=== PATIENT | male | born 1970 | race Caucasian/White ===

== ENCOUNTER 2020-05-22 23:48 | Observation (INO) | payer OTHER ==
[~2020-05-22] VITALS: Ht 180.3 cm; Wt 103.6 kg
[2020-05-23] VITALS (10 sets, daily range): BP systolic 104–147; BP diastolic 68–100; PULSE 60–81; TEMP 97.7–98.3
[2020-05-23 00:04] LABS: BASO # 0.1 (0.0-0.2); BASO % 0.6 % (0.0-2.0); EOS # 0.1 (0.0-0.7); EOS % 1.5 % (0-4.0); GRAN # 5.9 (1.4-6.5); GRAN % 71.7 % (42.2-75.2); HEMATOCRIT 46.9 % (42.0-52.0); HEMOGLOBIN 16.2 g/dl (13.5-18.0); LYMPH # 1.5 (1.2-3.4); LYMPH % 18.2 % (20.0-51.0); MEAN CELL VOLUME 87 fl (80.0-100.0); MEAN CORPUSCULAR HEMOGLOBIN 30 pg (27.0-31.0); MEAN CORPUSCULAR HGB CONC 35 g/dl (33.0-37.0); MEAN PLATELET VOLUME 9.7 fl (7.4-10.4); MONO # 0.6 (0.1-0.6); MONO % 7.6 % (1.7-9.3); PLATELET COUNT 283 K/mm3 (130-400); REDCELL DISTRIBUTION WIDTH-CV 13.1 % (11.5-14.5)
[2020-05-23 00:15] LABS: ALBUMIN 4.7 gm/dL (3.5-5.0); BILIRUBIN,TOTAL 0.6 mg/dL (0.0-1.0); CALCIUM 9.5 mg/dL (8.4-10.2); CREATININE, serum 0.95 (0.66-1.25); TOTAL PROTEIN 8.6 gm/dL (6.4-8.2)
--- NOTE | 2020-05-23 02:20 | NUR ---
ARRIVES TO ROOM 327 VIA W/C. IS ALERT AND ORIENTED X4. SL TO LEFT AC WITHOUT REDNESS OR SWELLING.
--- NOTE | 2020-05-23 02:55 | NUR ---
PT REPORTS PAIN BEHIND HIS EYES AND JAWS, MEDICATED WITH MORPHINE 2MG IVP AT THIS TIME. IS NPO. WILL HAVE EGD AT 0830. IVF INFUSING TO LEFT AC WITHOUT REDNESS OR SWELLING.
--- NOTE | 2020-05-23 05:00 | NUR ---
B/P IMPROVED. REPORTS PAIN BEHIND EYES AND JAW IS MUCH BETTER.
--- NOTE | 2020-05-23 05:40 | NUR ---
CONSENT SIGNED FOR EGD.
--- NOTE | 2020-05-23 08:00 | NUR ---
Patient resting in bed at this time. Patient changed into hospital gown and brushed his teeth prior to procedure. Denies pain or needs, call light within reach.
[2020-05-23] MEDS ORDERED: PRILOSEC 20MG20 MG PO (08:59)
--- NOTE | 2020-05-23 09:37 | NUR ---
SW met with patient to conduct intake evaluation. Patient lives at home in [place] with his Carly (P# [phone]). Patient does not have DPOA and was not interested in the paperwork at this time. Patient sees whatever doctor is available for his team on [place]. Patient was unsure what color team he belonged to. Patient uses [facility] for medications. Patient requires no assistance with ADL and uses no DME. Patient denies needing assistance affording medications. Patient's plan is to return home with providing transportation. Patient denies questions or concerns at this time. Social work will continue to follow.
--- NOTE | 2020-05-23 12:02 | NUR ---
stopped by but nothing needed at this time.
--- NOTE | 2020-05-23 12:15 | NUR ---
Post op checks WNL. Discharge teaching completed. Discussed follow up appointment, diet, and activity restrictions. Patient verbalized understanding. INT removed, catheter intact, hemostasis achieved. Patient escorted to ED entrance, where he entered a private vehicle.
== END 2020-05-23 12:15 | disposition home or self-care (01) ==
LOC: COL.ER 23:48 → SURG 05-23 00:47
PROVIDERS: Emergency Medicine; ADMIT Internal Medicine Gastroenterology
DX: K21.00 Gastro-esophageal reflux disease with esophagitis, without bleeding (principal); K22.2 Esophageal obstruction; Z20.822 Contact with and (suspected) exposure to COVID-19
CPT/HCPCS: C1726; G0378; J2060; J2270; J2405; J2704; J3010; J7030